=== PATIENT | male | born 1955 | race Asian ===

== ENCOUNTER 2016-06-16 09:45 | Outpatient (CLI) | payer OTHER ==
[2016-06-16 10:03] LABS: BASOPHILS % 0.6 (0.0-1.5); LYMPHOCYTES # 1.8 # k/uL (0.6-4.0); MEAN CORPUSCULAR HEMOGLOBIN 27.7 pg (28.0-34.0); MONOCYTES # 0.5 # k/uL (0.0-0.9)
[2016-06-16 10:35] LABS: eGFR (African) > 60; eGFR (Non-African) > 60
== END 2016-06-16 09:46 ==
LOC: LAB 09:45
PROVIDERS: ATTEND Nurse Practitioner Family
DX: R70.0 Elevated erythrocyte sedimentation rate (principal)
CPT/HCPCS: 36415; 80053; 85025

== ENCOUNTER 2016-06-23 12:58 | Outpatient (CLI) | payer OTHER ==
[2016-06-23 13:16] LABS: BASOPHILS % 0.8 (0.0-1.5); LYMPHOCYTES # 1.2 # k/uL (0.6-4.0); MEAN CORPUSCULAR HEMOGLOBIN 26.5 pg (28.0-34.0); MONOCYTES # 0.3 # k/uL (0.0-0.9); MONOCYTES % 5.6 % (0.0-11.0); NEUTROPHILS # 3.8 # k/uL (1.4-7.7)
[2016-06-23 13:55] LABS: eGFR (African) > 60; eGFR (Non-African) > 60
== END 2016-06-23 13:00 ==
LOC: LAB 12:58
PROVIDERS: ATTEND Nurse Practitioner Family
DX: R70.0 Elevated erythrocyte sedimentation rate (principal)
CPT/HCPCS: 36415; 80053; 85025